=== PATIENT | male | born 1995 | race Caucasian/White ===

== ENCOUNTER 2018-01-06 12:19 | Emergency (ER) | payer OTHER ==
[~2018-01-06] VITALS: Ht 182.9 cm; Wt 90.5 kg
[2018-01-06] MEDS ORDERED: PROPARACAINE HCL 0.5% 15 ML OPHTHALMIC SOLUTION OD ONE (13:00)
[2018-01-06] MEDS ORDERED: PROPARACAINE/FLUORESCEIN SOD 0.5-0.25% 0.5 ML OPHTHALMIC SOLUTION OD ONE (13:15)
[2018-01-06 13:57] VITALS: BP 146/95
== END 2018-01-06 14:07 | disposition home or self-care (01) ==
LOC: EMS 12:20 → EDBD 12:20 → EMS 14:07
DX: H57.8 Other specified disorders of eye and adnexa (principal); R03.0 Elevated blood-pressure reading, without diagnosis of hypertension
CPT/HCPCS: 99283; Z7610